=== PATIENT | male | born 2000 | race Caucasian/White ===

== ENCOUNTER 2022-10-22 12:18 | Emergency (ER) | payer OTHER, SELFPAY ==
[2022-10-22 12:30] VITALS: BP 152/85; PULSE 128; RESP 16; TEMP 37.4; O2SAT 99
--- NOTE | 2022-10-22 13:27 | ED.GENADULT ---
HPI - General Adult General Chief complaint: Upper Respiratory Infection Stated complaint: uri Source: patient Mode of arrival: ambulatory Limitations: no limitations History of Present Illness HPI narrative: Patient presents for evaluation of sore throat for the last 3 days. He also reports some sinus congestion. He denies any fever, chills, nausea, vomiting, diarrhea, cough, shortness of breath. No recent sick contacts to his knowledge. No history of COVID. He goes to school in [place] and is visiting family. His family advised to come in for further evaluation before he goes back to school. He does not smoke. He is not taking any medications for his symptoms. No additional complaints or concerns. Related Data Allergies Allergy/AdvReac Type Severity Reaction Status Date / Time No Known Allergies Allergy Unknown Verified 07/25/17 17:56 Review of Systems Review of Systems: CONSTITUTIONAL: Denies fever, chills, or sweats. EYES: Denies visual changes, redness, or discharge. ENT: Reports sinus congestion and sore throat. Denies otalgia.. CARDIOVASCULAR: Denies chest pain, palpitations, or edema. RESPIRATORY: Denies cough or dyspnea. GASTROINTESTINAL: Denies abdominal pain, nausea, vomiting, or diarrhea. GENITOURINARY: Denies dysuria or hematuria. SKIN: Denies rash or itching. MUSCULOSKELETAL: Denies back pain, joint pain, or myalgia. NEUROLOGIC: Denies headache, numbness, dizziness, or weakness. PSYCHIATRIC: Denies anxiety or depression. PMFSH Past Medical History Medical History Anxiety Surgical History Surgical History No pertinent past surgical history Family History Family History Mother Family history non-contributory Social History Social History Smoking status: Never smoker Substance use: never Gender identity (if verbalized by the patient): Male Spiritual care concerns: No Exam Narrative: GENERAL: Well-appearing, well-nourished, and in no acute distress. HEAD: Normocephalic, atraumatic. EYES: PERRLA and EOMI. ENT: Nares clear, no rhinorrhea or epistaxis. Mucous membranes moist. Bilateral tonsillar enlargement and erythema without exudate. Uvula is midline.. Bilateral TMs pearly rodriguez nonbulging NECK: Supple. No adenopathy or masses. No carotid bruits or JVD CHEST: Clear to auscultation. No respiratory distress. No wheezes rales or rhonchi HEART: Rate 118. Normal rhythm.no murmur heard. Normal peripheral pulses. ABDOMEN: Soft, nontender, nondistended, normal active bowel sounds. EXTREMITIES: Normal range of motion. No edema. SKIN: Warm, dry, no rash. NEURO: No focal deficits. Alert and oriented x3. PSYCH: Normal mood and affect. Course Course Emergency Course: This is a 22-year-old male who presented for evaluation of sore throat. We do not have rapid strep testing available. Will send throat culture. He is going back to school in [place] so start him on some antibiotics today, specifically Augmentin. Increase hydration. [id number] agents for symptom management. Was tachycardic but states he has underlying anxiety. Denied any chest pain, shortness of breath, palpitations. He was advised to go to the ER in the event that he experiences any of the symptoms. Patient in agreement with plan of care. Level of Care: Express Care Visit Vital Signs Vital signs: Vital Signs Temperature 37.4 C 10/22/22 12:30 Pulse Rate 128 H 10/22/22 12:30 Respiratory Rate 16 10/22/22 12:30 Blood Pressure 152/85 H 10/22/22 12:30 Pulse Oximetry 99 10/22/22 12:30 Temperature 37.4 C 10/22/22 12:30 Pulse Rate 128 H 10/22/22 12:30 Respiratory Rate 16 10/22/22 12:30 Blood Pressure 152/85 H 10/22/22 12:30 Pulse O
== END 2022-10-22 13:28 | disposition home or self-care (01) ==
PROVIDERS: Emergency Provider Nurse Practitioner; PCP Pediatrics
DX: J02.9 Acute pharyngitis, unspecified (principal)
CPT/HCPCS: 87081; 87147; 99203; G0463